=== PATIENT | male | born 1990 | race Caucasian/White ===

== ENCOUNTER 2017-08-18 17:02 | Emergency (ER) | payer SELFPAY ==
[2017-08-18 17:46] VITALS: PULSE 68
[2017-08-18 19:36] LABS: URINE BILIRUBIN NEGATIVE (NEGATIVE); URINE BLOOD NEGATIVE (NEGATIVE); URINE CLARITY Clear (Clear); URINE COLOR Straw (YELLOW); URINE GLUCOSE (UA) NORMAL (Normal); URINE LEUKOCYTE ESTERASE NEG Leu/uL (Negative); URINE NITRATE NEGATIVE (NEGATIVE); URINE PROTEIN NEGATIVE (NEGATIVE); URINE UROBILINOGEN NORMAL mg/dL (0.2-1.0)
--- NOTE | 2017-08-18 20:14 | C.PDOC ---
History Of Present Illness 26 yr old male presents to the ER with complaints of pain to the left lower back area. Patient believes its renal pain. Pain is reproducible. Patient denies fever, chills, chest pain, SOB, nausea, vomiting, flank pain, dysuria, hematuria, weakness or numbness. Time Seen by Provider: 08/18/17 19:06 Chief Complaint (Nursing): Male Genitourinary History Per: Patient History/Exam Limitations: no limitations Onset/Duration Of Symptoms: Days Past Medical History Reviewed: Historical Data, Nursing Documentation, Vital Signs Vital Signs: Last Vital Signs Temp 98 F 08/18/17 17:41 Pulse 68 08/18/17 17:41 Resp 17 08/18/17 17:41 BP 127/82 08/18/17 17:41 Pulse Ox 97 08/18/17 20:20 - Medical History PMH: Kidney Stones Family History: States: No Known Family Hx - Social History Hx Alcohol Use: Yes Hx Substance Use: No - Immunization History Hx Tetanus Toxoid Vaccination: No Hx Influenza Vaccination: No Hx Pneumococcal Vaccination: No Review Of Systems Except As Marked, All Systems Reviewed And Found Negative. Constitutional: Negative for: Fever, Chills Cardiovascular: Negative for: Chest Pain Respiratory: Negative for: Shortness of Breath Gastrointestinal: Negative for: Nausea, Vomiting, Abdominal Pain Genitourinary: Negative for: Dysuria, Hematuria Musculoskeletal: Positive for: Back Pain (left lower back pain) Neurological: Negative for: Weakness, Numbness Physical Exam - Physical Exam Appears: Non-toxic, No Acute Distress, Other (smiling) Skin: Warm, Dry Head: Atraumatic, Normacephalic Oral Mucosa: Moist Neck: Normal, Normal ROM, Supple Respiratory: Normal Breath Sounds, No Rales, No Rhonchi, No Stridor, No Wheezing Gastrointestinal/Abdominal: Normal Exam, Soft, No Tenderness, No Guarding, No Rebound Back: Other (+ tenderness to left posterior and lateral iliac crest) Extremity: Normal ROM, No Swelling Neurological/Psych: Oriented x3, Normal Speech ED Course And Treatment O2 Sat by Pulse Oximetry: 97 (RA) Pulse Ox Interpretation: Normal Medical Decision Making Medical Decision Making: PLAN: * Urinalysis * Motrin PO * Muscular L hip discomfort, no UTI/pyelo/renal colic. improved with motrin/ice continue same Disposition Doctor Will See Patient In The: Office Counseled Patient/Family Regarding: Studies Performed, Diagnosis - Disposition Disposition: HOME/ ROUTINE Disposition Time: 20:32 Condition: GOOD Forms: [facility] (Indonesian) - Clinical Impression Clinical Impression: Low back strain - Scribe Statement The provider has reviewed the documentation as recorded by the Karlibe Thuy Ramirez Provider Attestation: All medical record entries made by the Karlibe were at my direction and personally dictated by me. I have reviewed the chart and agree that the record accurately reflects my personal performance of the history, physical exam, medical decision making, and the department course for this patient. I have also personally directed, reviewed, and agree with the discharge instructions and disposition.
[2017-08-18 21:33] VITALS: BP 121/74; RESP 18; TEMP 98.5; O2SAT 98
== END 2017-08-18 21:15 | disposition home or self-care (01) ==
LOC: C.ER 17:02
DX: S39.012A Strain of muscle, fascia and tendon of lower back, initial encounter (principal); X58.XXXA Exposure to other specified factors, initial encounter

== ENCOUNTER 2018-10-01 10:01 | Emergency (ER) | payer SELFPAY ==
[2018-10-01 10:09] VITALS: RESP 16; TEMP 98.1; O2SAT 98
--- NOTE | 2018-10-01 11:20 | RAD ---
Lumbar spine three views HISTORY: Back pain. COMPARISON: None available. FINDINGS: Spinal alignment is maintained. Vertebral body heights are preserved. No evidence for acute displaced fracture. Moderate fecal retention in the colon. Impression: Negative acute. If pain persists, consider correlation with MRI.
[2018-10-01 12:20] LABS: URINE BILIRUBIN NEGATIVE (NEGATIVE); URINE CLARITY Clear (Clear); URINE COLOR YELLOW (YELLOW); URINE GLUCOSE (UA) NEGATIVE (Normal)
[2018-10-01 12:21] LABS: PH,URINE 6.5 (5.0-8.0); URINE BLOOD NEGATIVE (NEGATIVE); URINE LEUKOCYTE ESTERASE NEGATIVE Leu/uL (Negative); URINE PROTEIN NEGATIVE (NEGATIVE); URINE UROBILINOGEN 0.2 mg/dL (0.2-1.0)
[2018-10-01 12:39] LABS: EOS # 0.2 K/uL (0.0-0.7); EOS % 4.3 % (0.0-4.0); HEMOGLOBIN 14.9 g/dL (12.0-18.0); LYMPH # 1.4 K/uL (1.0-4.3); LYMPH % 35.4 % (20.0-40.0); MEAN CELL VOLUME 97.3 fL (80.0-94.0); MEAN CORPUSCULAR HEMOGLOBIN 34.3 pg (27.0-31.0); MEAN CORPUSCULAR HGB CONC 35.3 g/dL (33.0-37.0); MONO # 0.4 K/uL (0.0-0.8); MONO % 9.1 % (0.0-10.0); NEUT % 50.2 % (50.0-75.0); NRBC % 0.1 % (0.0-2.0); RBC 4.35 Mil/uL (4.40-5.90); RED CELL DISTRIBUTION WIDTH 11.9 % (11.5-14.5)
[2018-10-01 12:53] LABS: ALB/GLOB RATIO 1.9 (1.0-2.1); ALBUMIN 4.4 g/dL (3.5-5.0); ALT/SGPT 13 U/L (21-72); AST/SGOT 23 U/L (17-59); BLOOD UREA NITROGEN 16 mg/dL (9-20); CALCIUM 9.9 mg/dl (8.6-10.4); GFR NON-AFRICAN AMERICAN > 60
--- NOTE | 2018-10-01 14:56 | C.PDOC ---
History Of Present Illness 27 year old male presents to the ED complaining of leg weakness for the past 4 days status post walking a few feet. States he took Alleve with some relief. Notes he developed lumber back pain yesterday. Reports he has had lumbar back pain intermittently for the past year. States he followed up with PMD for the back pain but results were normal as per patient. Denies any trauma or injuries. 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[email or web address]) History/Exam Limitations: no limitations Onset/Duration Of Symptoms: Days (4) Current Symptoms Are (Timing): Still Present Quality Of Discomfort: "Pain" Previous Symptoms: Back Pain Associated Symptoms: New Weakness (leg weakness ) Past Medical History Reviewed: Historical Data, Nursing Documentation, Vital Signs Vital Signs: Last Vital Signs Temp 98.1 F 10/01/18 10:06 Pulse 93 H 10/01/18 10:06 Resp 16 10/01/18 10:06 BP Pulse Ox 98 10/01/18 10:06 - Medical History PMH: Kidney Stones Surgical History: No Surg Hx Family History: States: No Known Family Hx - Social History Hx Alcohol Use: Yes Hx Substance Use: No - Immunization History Hx Tetanus Toxoid Vaccination: No Hx Influenza Vaccination: No Hx Pneumococcal Vaccination: No Review Of Systems Constitutional: Negative for: Fever, Chills, Malaise Eyes: Negative for: Vision Change Cardiovascular: Negative for: Chest Pain Respiratory: Negative for: Shortness of Breath Gastrointestinal: Negative for: Nausea, Vomiting Genitourinary: Negative for: Incontinence Musculoskeletal: Positive for: Back Pain Skin: Negative for: Rash, Bruising Neurological: Positive for: Weakness (B/L lower extremity ). Negative for: Headache, Dizziness Physical Exam - Physical Exam Appears: Non-toxic, No Acute Distress Skin: Warm, Dry, No Rash Head: Atraumatic, Normacephalic Eye(s): bilateral: Normal Inspection, PERRL Ear(s): Bilateral: Normal Nose: Normal Oral Mucosa: Moist Tongue: Normal Appearing Lips: Normal Appearing Throat: No Erythema, No Exudate Neck: Normal ROM, Trachea Midline, Supple Chest: Symmetrical Cardiovascular: Rhythm Regular Respiratory: Normal Breath Sounds, No Accessory Muscle Use, No Wheezing Gastrointestinal/Abdominal: Soft, No Tenderness Back: No CVA Tenderness, No Decreased ROM, Other (vertebral tenderness to lumbar spine upon palpation) Extremity: No Pedal Edema, No Calf Tenderness, Capillary Refill (less than 2 sec to B/L legs ), No Deformity, No Swelling, Other (5/5 strength to B/L legs ) Extremity: Bilateral: Atraumatic, Normal Color And Temperature, Normal ROM Pulses: Left Dorsalis Pedis: Normal, Right Dorsalis Pedis: Normal Neurological/Psych: Oriented x3, Normal Speech, Normal Cognition, Normal Motor, Normal Sensation, Normal Reflexes, Other (5/5 strength bilaterally ) Gait: Steady ED Course And Treatment - Laboratory Results Result Diagrams: 10/01/18 12:26 10/01/18 12:26 Lab Results: Total Bilirubin 0.6 mg/dL (0.2-1.3) 10/01/18 12:26 AST 23 U/L (17-59) 10/01/18 12:26 ALT 13 U/L (21-72) L 10/01/18 12:26 Alkaline Phosphatase 65 U/L (38-126) 10/01/18 12:26 Total Protein 6.7 g/dL (6.3-8.3) 10/01/18 12:26 Albumin 4.4 g/dL (3.5-5.0) 10/01/18 12:26 Globulin 2.3 gm/dL (2.2-3.9) 10/01/18 12:26 Albumin/Globulin Ratio 1.9 (1.0-2.1) 10/01/18 12:26 Urine Color Yellow (YELLOW) 10/01/18 11:41 Urine Clarity Clear (Clear) 10/01/18 11:41 Urine pH 6.5 (5.0-8.0) 10/01/18 11:41 Ur Specific [place] 1.015 (1.003-1.030) 10/01/18 11:41 Urine Protein Negative mg/dL (NEGATIVE) 10/01/18 11:41 Urine Glucose (UA) Negative mg/dL (Normal) 10/01/18 11:41 Urine Ketones Negative mg/dL (NEGATIVE) 10/01/18 11:41 Urine Blood Negative (NEGATIVE) 10/01/18 11:41 Urine Nitrate Negative (NEGATIVE) 10/01/18 11:41 Urine Bilirubin Negative (NEGATIVE) 10/01/18 11:41 Urine Urobilinogen 0.2 mg/dL (0.2-1.0) 10/01/18 11:41 Ur Leukocyte Esterase Negative Miranda/uL (Negative) 10/01/18 11:41 Urine WBC (Auto) < 1 /hpf (0-5) 10/01/18 11:41 Urine RBC (Auto) 1 /hpf (0-3) 10/01/18 11:41 O2 Sat by Pulse Oximetry: 98 (RA) Pulse Ox Interpretation: Normal - Other Rad LS spine X-Ray: Viewed By Me, Read By Radiologist Interpretation: Accession No. : [id number]. Patient Name / ID : SHANTEL LYNN / [id number]. Exam Date : 10/01/2018 10:57:30 ( Approved ). Study Comment : Sex / Age : M / 27Y. Creator : Julio Ahmadi MD. Dictator : Julio Ahmadi MD. Boat Person : Orthopedic Designer : Julio Ahmadi MD. Approver2 : Report Date : 10/01/2018 11:16:42. My Comment : . Lumbar spine three views. HISTORY: Back pain. COMPARISON: None available. FINDINGS: Spinal alignment is maintained. Vertebral body heights are preserved. No evidence for acute displaced fracture. Moderate fecal retention in the colon. Impression: Negative acute. If pain persists, consider correlation with MRI. Medical Decision Making Medical Decision Making: Plan - Motrin 600mg PO - labs- ESR normal - LS spine -Negative but notes moderate fecal retention in colon - UA ordered [address] Caruso, Neurologist, who suggested to admit patient to rule out MS. 1515 Discussed admission with patient who would like to sign AMA. D/W patient the risk of worsening weakness, paralysis, and even . The patient declines admission, and wishes to leave the Emergency Department. This action is against my medical advice to the patient and the decision was made with informed refusal. The patient was told that admission is necessary and a full explanation of the rationale was given. The risks of leaving were explained to the patient and include, but are not limited to, worsening of known or currently unknown conditions, permanent disability and from undiagnosed or untreated conditions The patient has the capacity to make this informed decision and understands the clinical situation and my explanation of the risks of leaving. The patient voluntarily accepts these risks, and a signed AMA form documenting our conversation was obtained. The patient was given the opportunity to ask questions and reconsider. The patient was encouraged to return to the Emergency Department at any time for further care. Disposition Counseled Patient/Family Regarding: Studies Performed, Diagnosis, Need For Foll owup, Rx Given - Disposition Referrals: Warner Caruso MD [Staff Provider] - Disposition: AGAINST MEDICAL ADVICE Disposition Time: 15:23 Condition: STABLE Additional Instructions: You are signing against medical advice to be admitted and have further evaluatio n by Neurologist You are strongly recommended to follow up with Neurologist tomorrow Return to the ED if you develop worsening symptoms including weakness, severe headache, or paralysis Prescriptions: Ibuprofen [Motrin] 600 mg PO Q8 PRN #30 tab PRN Reason: Pain, Moderate (4-7) Instructions: Weakness (ED) Forms: [facility] (Emirati) - Clinical Impression Clinical Impression: Low back pain, Weakness of both lower extremities - PA / MANAGER UROLOGY / Resident Statement MD/DO has reviewed & agrees with the documentation as recorded. - Scribe Statement The provider has reviewed the documentation as recorded by the Scribe Erin Fong All medical record entries made by the Gianluca were at my direction and personally dictated by me. I have reviewed the chart and agree that the record accurately reflects my personal performance of the history, physical exam, medical decision making, and the department course for this patient. I have also personally directed, reviewed, and agree with the discharge instructions and disposition.
[2018-10-01 15:38] VITALS: BP 132/79; PULSE 84
== END 2018-10-01 15:38 | disposition left against medical advice (07) ==
LOC: C.ER 10:01
DX: R53.1 Weakness (principal); M54.5 Low back pain